=== PATIENT | female | born 1935 | race Caucasian/White ===

== ENCOUNTER 2018-01-12 17:16 | Inpatient (IN) | payer MEDICARE, OTHER ==
[~2018-01-12] VITALS: Ht 167.6 cm; Wt 62.8 kg
[~2018-01-12 17:16] MED LIST: ASPI-264 OR; B-COCAP4 OR; CALC-30; DIGO0.1262 OR; GEMFIBROZIL; METO-169 OR; METO25TA62 OR; NAPR500T31 OR; PRESERVISION
[2018-01-12] MEDS ORDERED: SODIUM CHLORIDE 0.9% 1,000 ML IVB ONE (18:21)
[2018-01-12 19:34] LABS: Basophils # (auto) 0.1 uL; Basophils % (auto) 0.7 % (0.0-2.0); Eosinophils # (auto) 0.1 uL; Eosinophils % (auto) 1.3 % (0.0-7.0); Hematocrit 44.9 % (36.0-46.0); Hemoglobin 15.1 g/dL (12.2-16.2); Lymphocytes % (auto) 8.9 % (10.0-50.0); Mean Corpuscular Hemoglobin 30.5 pg (28.0-32.0); Mean Corpuscular Hgb Conc. 33.7 g/dL (32.0-36.0); Mean Corpuscular Volume 90.5 fL (80.0-100.0); Monocytes # (auto) 0.6 uL; Monocytes % (auto) 5.3 % (0.0-12.0); Neutrophils # (auto) 9.4 uL; Neutrophils % (auto) 83.8 % (37.0-80.0); Nucleated Red Blood Cells % 0.1 %; Red Blood Cells 4.96 10^6/uL (4.0-5.20); White Blood Cell 11.2 10^3/uL (4.4-10.8)
[2018-01-12 19:40] LABS: Platelet Count (auto) 129 10^3/uL (140-450)
[2018-01-12 19:48] LABS: INR 1.04 (0.9-1.15); Partial Thromboplastin Time 25.7 sec (23.78-33.04); Prothrombin Time 11.1 sec (9.27-12.13)
[2018-01-12 21:42] LABS: Alanine Aminotransferase 23 U/L (13-56)
[2018-01-12 21:57] LABS: Anion Gap 7 (5-15); Carbon Dioxide 22 mmol/L (21-32); Chloride 107 mmol/L (98-107); Potassium 4.2 mmol/L (3.5-5.1); Sodium 136 mmol/L (136-145)
[2018-01-12 21:58] LABS: Albumin 3.3 g/dL (3.4-5.0); Alkaline Phosphatase 180 U/L (45-117); Aspartate Aminotransferase 42 U/L (15-37); BUN/Creatinine Ratio 25.6; Bilirubin, Total 0.5 mg/dL (0.2-1.0); Blood Urea Nitrogen 23 mg/dL (7-18); Calcium 8.8 mg/dL (8.5-10.1); GFR African American 77 mL/min; GFR Non-African American 64 mL/min; Glucose 136 mg/dL (74-106); Magnesium 2.7 mg/dL (1.6-2.6); Total Protein 6.8 g/dL (6.4-8.2)
[2018-01-12] MEDS ORDERED: HYDROcodone-ACET 5/325MG TAB PO PRN (22:00)
[2018-01-12] MEDS ORDERED: MORPHINE SULFATE 4 MG/ML SYR/VIAL IV PRN (22:00)
[2018-01-12] MEDS ORDERED: TEMAZEPAM 15 MG CAP PO PRN (22:00)
[2018-01-12] MEDS ORDERED: FAMOTIDINE 20 MG TAB PO SCH (22:00)
[2018-01-12] MEDS ORDERED: ONDANSETRON HCL 4 MG/2 ML VIAL IV PRN (22:00)
[2018-01-12] MEDS ORDERED: DOCUSATE SOD 100 MG CAP PO PRN (22:00)
[2018-01-12] MEDS ORDERED: ACETAMINOPHEN 325 MG TAB PO PRN (22:00)
[2018-01-12] MEDS: SODIUM CHLORIDE 0.9% 1,000 ML IV SCH (22:30)
[2018-01-12 22:40] VITALS: BP 148/84
[2018-01-12 22:42] VITALS: BP 148/84
[2018-01-13] MEDS ORDERED: DIGO50SO2 PO (03:40)
[2018-01-13] MEDS ORDERED: METO100T87 PO (03:42)
[2018-01-13 04:41] LABS: Basophils # (auto) 0.1 uL; Basophils % (auto) 0.8 % (0.0-2.0); Eosinophils # (auto) 0.2 uL; Eosinophils % (auto) 3.2 % (0.0-7.0); Hematocrit 43.4 % (36.0-46.0); Hemoglobin 14.8 g/dL (12.2-16.2); Lymphocytes # (auto) 1.2 uL; Lymphocytes % (auto) 16.1 % (10.0-50.0); Mean Corpuscular Hemoglobin 30.8 pg (28.0-32.0); Mean Corpuscular Volume 90.6 fL (80.0-100.0); Monocytes # (auto) 0.6 uL; Monocytes % (auto) 7.9 % (0.0-12.0); Neutrophils # (auto) 5.3 uL; Nucleated Red Blood Cells % 0.1 %; Platelet Count (auto) 160 10^3/uL (140-450); Red Blood Cells 4.79 10^6/uL (4.0-5.20); Red Cell Distribution Width 17.7 % (11.8-14.3); White Blood Cell 7.3 10^3/uL (4.4-10.8)
[2018-01-13 04:50] VITALS: BP 136/82
[2018-01-13 04:50] LABS: Albumin 3.1 g/dL (3.4-5.0); BUN/Creatinine Ratio 25.7; Calcium 8.4 mg/dL (8.5-10.1); Potassium 3.9 mmol/L (3.5-5.1)
[2018-01-13 04:53] LABS: Bilirubin, Total 0.6 mg/dL (0.2-1.0); Total Protein 6.4 g/dL (6.4-8.2)
[2018-01-13 06:59] LABS: Urine Bacteria FEW /hpf (None Seen); Urine Blood Negative /uL (Negative); Urine Specific Gravity 1.012 (1.001-1.035); Urine WBC 2 /hpf (0 - 5)
[2018-01-13 08:00] VITALS: BP 131/76
[2018-01-13] MEDS: ENOXAPARIN SOD 40 MG/0.4 ML SYRINGE SC SCH (09:52)
[2018-01-13] MEDS: DIGOXIN 0.25 MG TAB PO SCH (09:53)
[2018-01-13] MEDS: METOPROLOL SUCCINATE XL 50 MG TAB PO SCH (09:53)
[2018-01-13] MEDS: FAMOTIDINE 20 MG TAB PO SCH (09:53)
[2018-01-13 12:30] VITALS: BP 142/102
[2018-01-13] MEDS: SODIUM CHLORIDE 0.9% 1,000 ML IV SCH (14:44)
[2018-01-13 16:53] VITALS: BP 121/70
[2018-01-13 22:00] VITALS: BP 124/69
[2018-01-14 05:07] VITALS: BP 140/83
[2018-01-14] MEDS: SODIUM CHLORIDE 0.9% 1,000 ML IV SCH (06:37)
[2018-01-14 09:00] VITALS: BP 122/59
[2018-01-14] MEDS: FAMOTIDINE 20 MG TAB PO SCH (09:40)
[2018-01-14] MEDS: ENOXAPARIN SOD 40 MG/0.4 ML SYRINGE SC SCH (09:40)
[2018-01-14] MEDS: METOPROLOL SUCCINATE XL 50 MG TAB PO SCH (09:44)
[2018-01-14] MEDS: DIGOXIN 0.25 MG TAB PO SCH (09:44)
[2018-01-14 13:00] VITALS: BP 128/64
[2018-01-14] MEDS ORDERED: LACTULOSE 20Gm/30ML SOLN PO PRN (15:15)
[2018-01-14] MEDS ORDERED: FLEET MINERAL OIL ENEMA 133 ML PR ONE (15:45)
[2018-01-14 17:00] VITALS: BP 132/75
[2018-01-14 22:00] VITALS: BP_SYST 130; BP_SYST 133; BP_DIAS 81
[2018-01-14] MEDS: oxyCODONE ER 10 MG TAB PO SCH (22:45)
[2018-01-15 05:00] VITALS: BP 136/87
[2018-01-15 08:19] VITALS: BP 142/68
[2018-01-15] MEDS: oxyCODONE ER 10 MG TAB PO SCH (10:00)
[2018-01-15] MEDS: METOPROLOL SUCCINATE XL 50 MG TAB PO SCH (10:02)
[2018-01-15] MEDS: ENOXAPARIN SOD 40 MG/0.4 ML SYRINGE SC SCH (10:02)
[2018-01-15] MEDS: DIGOXIN 0.25 MG TAB PO SCH (10:03)
[2018-01-15] MEDS: FAMOTIDINE 20 MG TAB PO SCH (10:03)
[2018-01-15 12:02] VITALS: BP 132/83
== END 2018-01-15 16:15 | DRG 543 ==
LOC: EDBD 17:16 → ER 17:16 → EDUNIT# 17:16 → MERGE 17:17 → OVERFLOW 17:17 → WEST WING 22:39
PROVIDERS: ADMIT Nurse Practitioner; ATTEND Internal Medicine
DX: M84.551A Pathological fracture in neoplastic disease, right femur, initial encounter for fracture (principal); C79.51 Secondary malignant neoplasm of bone; M80.051A Age-related osteoporosis with current pathological fracture, right femur, initial encounter for fracture; E11.9 Type 2 diabetes mellitus without complications; I10 Essential (primary) hypertension; I48.0 Paroxysmal atrial fibrillation; I87.8 Other specified disorders of veins; K59.00 Constipation, unspecified; M16.12 Unilateral primary osteoarthritis, left hip; Z96.641 Presence of right artificial hip joint; M19.90 Unspecified osteoarthritis, unspecified site; Z88.7 Allergy status to serum and vaccine; Z88.8 Allergy status to other drugs, medicaments and biological substances; Z95.0 Presence of cardiac pacemaker; Z85.3 Personal history of malignant neoplasm of breast; Z82.49 Family history of ischemic heart disease and other diseases of the circulatory system; W18.30XA Fall on same level, unspecified, initial encounter; Y93.89 Activity, other specified; Y92.89 Other specified places as the place of occurrence of the external cause; Y99.8 Other external cause status
CPT/HCPCS: 36415; 70450; 71045; 72192; 73502; 80053; 81001; 83735; 85025; 85610; 85730; 93005; 94761; 96360; 96361